=== PATIENT | female | born 1995 | race Caucasian/White ===

== ENCOUNTER 2024-06-26 01:15 | Emergency (ER) | payer MEDICAID ==
[~2024-06-26] VITALS: Ht 165.1 cm; Wt 100.0 kg
[2024-06-26 01:28] VITALS: O2SAT 99
[2024-06-26] MEDS: LORAZEPAM 2MG/ML INJ IM STA (01:57)
[2024-06-26 02:04] LABS: BASOPHILS % 0.7 % (0.0-2.0); EOSINOPHILS % 1.6 % (0.0-5.0); HEMATOCRIT. 41.5 % (36.0-48.0); HEMOGLOBIN. 14.1 g/dL (12.0-16.0); MEAN CORPUSCULAR HEMOGLOBIN 31.9 pg (28.0-32.0); MEAN CORPUSCULAR HGB CONC 34.1 g/dL (31.0-37.0); MEAN CORPUSCULAR VOLUME 93.5 fL (81.0-99.0); MEAN PLATELET VOLUME 9.1 fl (7.4-10.4); MONOCYTES % 7.4 % (2.0-8.0); NEUTROPHILS % 56.3 % (40.0-76.0); PLATELET 397 x1000/uL (130-400); RED BLOOD CELL COUNT 4.44 mill/uL (4.2-5.4); RED CELL DISTRIBUTION WIDTH 12.8 % (11.6-14.6); WHITE BLOOD COUNT 10.2 x1000/uL (4.5-11.0)
[2024-06-26 02:09] LABS: CHLORIDE 110 mEq/L (98-107); POTASSIUM 3.7 mEq/L (3.5-5.1)
[2024-06-26 02:10] LABS: SODIUM 143 mEq/L (136-145)
[2024-06-26 02:11] LABS: CALCIUM 9.4 mg/dL (8.7-10.4); CARBON DIOXIDE 23 mEq/L (21-32)
[2024-06-26 02:13] LABS: BG BASE EXCESS -1.1 mmol/L (-2.0-3.0); BG DEOXYHEMOGLOBIN 0.7 % (0.0-5.0); BG FRACTION INSPIRED OXYGEN 21; BG HCO3 ACT 19.3 mmol/L (21.0-28.0); BG METHEMOGLOBIN 0.3 % (0.5-1.5); BG OXYGEN SATURATION 99.3 % (94.0-98.0); BG PCO2 22.6 mmHg (32.0-45.0); BG PH 7.549 (7.350-7.450); BG PO2 146.9 mmHg (83.0-108.0); BG SAMPLE SITE ALINE; BG VENT MODE ROOM AIR
[2024-06-26 02:16] LABS: CREATININE 0.7 mg/dL (0.6-1.0); ETHANOL BLOOD 224 mg/dL (<10); GLUCOSE 116 mg/dL (70-105); UREA NITROGEN BLOOD 7 mg/dL (9-23)
[2024-06-26 02:18] LABS: ACETAMINOPHEN < 2 ug/mL (10-30)
[2024-06-26 02:20] VITALS: BP 158/82; PULSE 95; RESP 24; TEMP 37.00296; O2SAT 99
[2024-06-26 02:20] LABS: HCG SCREEN NEGATIVE
== END 2024-06-26 04:39 | disposition home or self-care (01) ==
LOC: ER 01:15
DX: R06.02 Shortness of breath (principal)
CPT/HCPCS: 80048; 80307; 80329; 80320; 84703; 85025; 36415; 71045; 82805; 82375; 93005; 96372; 99285; 36600; J2060; G0480